=== PATIENT | male | born 1980 | race Caucasian/White ===

== ENCOUNTER → 2016-11-10 | Outpatient (CLI) | payer BC, OTHER ==
[2016-11-10 12:29] LABS: AUTOMATED NEUTROPHIL # 3.7 TH/MM3 (1.8-7.7); BASOPHIL % 0.5 % (0.0-2.0); EOSINOPHIL # 0.1 TH/MM3 (0-0.4); EOSINOPHIL % 2.4 % (0.0-4.0); HEMATOCRIT 47.7 % (39.0-51.0); HEMO FLAGS DIFF FINAL; LYMPH % 25.9 % (9.0-44.0); LYMPHOCYTE # 1.5 TH/MM3 (1.0-4.8); MEAN CELL VOLUME 86.9 FL (80.0-100.0); MEAN CORPUSCULAR HEMOGLOBIN 29.5 PG (27.0-34.0); MEAN CORPUSCULAR HGB CONC 33.9 % (32.0-36.0); MONO % 8.1 % (0.0-8.0); NEUT % 63.1 % (16.0-70.0); PLATELET COUNT 224 TH/MM3 (150-450); RED BLOOD COUNT 5.48 MIL/MM3 (4.50-5.90); RED CELL DISTRIBUTION WIDTH 12.8 % (11.6-17.2); WHITE BLOOD COUNT 5.8 TH/MM3 (4.0-11.0)
== END ==
LOC: CPRE 11:46
PROVIDERS: ATTEND Plastic Surgery
DX: Z01.812 Encounter for preprocedural laboratory examination (principal); C44.311 Basal cell carcinoma of skin of nose
CPT/HCPCS: 36415; 85025

== ENCOUNTER → 2016-11-16 | Day surgery (SDC) | payer BC, OTHER ==
[~2016-11-16] VITALS: Ht 172.7 cm; Wt 67.2 kg
[~2016-11-16] MED LIST: ACETAMINOPHEN 1000 MG/100 ML VIAL IV ONE; ACETAMINOPHEN/HYDROcodone 325 MG/5 MG TAB PO PRN; BACITRACIN TOP OINT 15 GM TUBE ONE; BACITRACIN TOP OINT 15 GM TUBE TOP SCH; DEXTROSE 5%-LACTATED RING INJ 1,000 ML IV SCH; DO NOT ADM ANY ANTICOAGULANT DRUGS XX PRN; INSULIN HUMAN REGULAR 1,000 UNITS/10 ML VIAL SQ PRN; LACTATED RINGER'S 1000 ML INJ 1,000 ML IV ONE; LACTATED RINGER'S 1000 ML IV SCH; LIDOCAINE 1%/EPINEPHrine 1:100,000 SOLN 20 ML VIAL ONE; METOPROLOL TARTRATE 25 MG TAB PO PRN; MORPHINE SULFATE 4 MG/ML INJ IV PRN; MUPIROCIN 2% OINT 22 GM TUBE ONE; NEOMYCIN/POLYMYXIN/HYDROCORT OTIC SOLN 10 ML BTL ONE; NEOSTIGMINE 3 MG/3 ML SYR IV ONE; ONDANSETRON HCL 4 MG/2 ML VIAL IV PUSH ONE; ONDANSETRON HCL 4 MG/2 ML VIAL IV PUSH PRN; ONDANSETRON HCL 4 MG/2 ML VIAL ONE; PHENYLEPH/NS 1000 MCG/10 ML SYR IV ONE; PROMETHAZINE INJ 25 MG/ML VIAL ONE; PROPOFOL 200 MG/20 ML AMP IV ONE; SODIUM CHLOR 0.9% 250 ML INJ 250 ML ONE; SODIUM CHLORID 0.9% 500 ML IV SCH; SODIUM CHLORIDE 0.9% INJ 100 ML ONE; TETRACAINE 0.5% OPTH SOLN 2 ML BTL ONE; TOBRAMYCIN SULFATE 0.3% OPTH OINT 3.5 GM TUBE ONE; VANCOMYCIN 1,000 MG/NS 250 ML IV SCH; VANCOMYCIN HCL 1000 MG VIAL ONE; ceFAZolin 1,000 MG/NS 100 ML IV SCH; ceFAZolin INJ 1,000 MG VIAL ONE; fentaNYL CITRATE 250 MCG/5 ML AMP ONE
[2016-11-16 05:46] VITALS: BP 153/97; PULSE 83; RESP 20; TEMP 97.8; O2SAT 100
[2016-11-16 13:00] VITALS: BP 134/60; PULSE 80; RESP 16; TEMP 97.6; O2SAT 100
--- NOTE | 2016-11-17 08:02 | MP ---
cc: ОЛЕГ HAYNES M.D. DATE OF SURGERY 11/16/2016 PREOPERATIVE DIAGNOSIS Biopsy-proven 1.5 cm basal cell carcinoma to the nose. POSTOPERATIVE DIAGNOSIS Biopsy-proven 1.5 cm basal cell carcinoma to the nose. OPERATION PERFORMED Wide local excision of 1.5 cm basal carcinoma tip of the nose with 6 mm margins and frozen section control. frozen section control positive at 9 o'clock, re-excision of the nose from 6 o'clock to 9 o'clock to 12 o'clock 6 mm margin of A total width of 2.25 cm on the first excision and 3 cm on the second excision. reconstruction with bilobed pedicle flap from the side of the nose and up on the dorsum of the nose. SURGEON Dr. Олег Haynes [employer]OV[employer] ADVISOR [facility] ANESTHESIA General endotracheal with infiltration of 1% Xylocaine with 1:100,000 epinephrine. COMPLICATIONS None ESTIMATED BLOOD LOSS 50 cc FLUID REPLACEMENT 1200 cc crystalloid PATHOLOGY Excision of basal cell carcinoma, frozen section margin close at 9 o'clock, re-excision from 6 to 9 to 12, 6 mm. DRAINS None COMPLICATIONS None DESCRIPTION OF OPERATION The patient was seen in the preop area. He was given IV vancomycin and Ancef. The tumor was marked and a 6 mm margin was outlined around it. The proposed bilobed pedicle flap was outlined. The patient was prewarmed a bear hugger and pneumatic compression garments of his lower extremities. He was brought to the operating room, placed on the operating table where he was prewarmed with a bear hugger, pneumatic compression garments on his lower extremities. He was placed under general endotracheal anesthesia. Endotracheal tube was tied to his lower incisors with a 2-0 black silk. The nose was infiltrated with 1% Xylocaine 1000 epinephrine. The table was turned 180 degrees. The patient's face and head were prepped and draped in a sterile fashion. Correction, the nose was not infiltrated until after the table had been turned and the time out had been done and the patient all agreed. The patient's head and face were prepped and draped in a sterile fashion. The drawn excision was excised full-thickness down to the perichondrium. A suture was placed at 12 o'clock and sent to pathology for examination. There was residual cancer and the margin at 9 o'clock was within to cell layers of the proximity to the margin. It was elected then to re-excise from 6 o'clock through to 9 clock to 12 o'clock. These margins were clear. The meticulous hemostasis was obtained electrocautery. The proposed bilobed pedicle flap was then redrawn. The first lobe was up on the dorsum of the nose somewhat obliquely and then the second lobe was a triangular incision up alongside of the nose. The incisions were made full-thickness and the nose was completely undermined in all aspects to release the flaps for rotation. Meticulous hemostasis was obtained with electrocautery. The triangular flap was moved into the first circular defect and the donor site was closed with a running vertical mattress suture of 5-0 Prolene along the right side of the nose. The circular flap was rotated into the defect of the excision of the cancer and sutured in with interrupted vertical mattress sutures of 6-0 Prolene. The triangular flap was trimmed to fit the defect and to make this a circular flap to fit into the circular defect, this was sutured in completely with interrupted vertical mattress sutures of 6-0 Prolene. The circular flap was rotated into the defect of the cancer excision and sutured in place with interrupted vertical mattress sutures of 6-0 Prolene and as we rotated this around from medially to laterally, there was need to take a triangular excision to get rid of the dog ear and to raise the alar rim to make it parallel to the opposite alar rim. This was excised and removed and discarded. Meticulous hemostasis obtained with electrocautery and the wound was further closed with interrupted vertical mattress sutures of 6-0 Prolene. The nose was then packed with Merocel sponges impregnated with Bactroban ointment. They were inflated. The wounds were all cleaned. Bactroban ointment applied to the nose. He was awakened, extubated, transferred to a stretcher and sent to the recovery in satisfactory condition. MD EVER Sheppard/KEVIN /10:07 AM /7:45 AM
== END | disposition home or self-care (01) ==
LOC: HSDC 05:17
PROVIDERS: ATTEND Plastic Surgery
DX: C44.311 Basal cell carcinoma of skin of nose (principal)
CPT/HCPCS: 00300; 14060; 88305; 88331; J0131; J0690; J2370; J2405; J2550; J2710; J3010; J3370; J7050; J7120; J7121